=== PATIENT | male | born 1955 ===

== ENCOUNTER → 2024-12-22 | Outpatient (CLI) | payer MEDICARE, OTHER ==
[~2024-12-22] VITALS: Ht 167.6 cm; Wt 62.0 kg
[~2024-12-22] MED LIST: ALBU18HF12 IH; APIX5TAB PO; ATOR40TA28 PO; MIRT-89 PO; PANT-31 PO; TAMS0.4C94 PO
[2024-12-22 10:17] VITALS: BP 111/70; PULSE 74; RESP 19; TEMP 98.1; O2SAT 96
== END | disposition still patient (30) ==
LOC: SRCNTR 10:13
PROVIDERS: ATTEND Internal Medicine Pulmonary Disease
DX: I48.91 Unspecified atrial fibrillation (principal); J44.1 Chronic obstructive pulmonary disease with (acute) exacerbation; Z79.01 Long term (current) use of anticoagulants; Z79.899 Other long term (current) drug therapy; Z82.49 Family history of ischemic heart disease and other diseases of the circulatory system; Z87.891 Personal history of nicotine dependence; Z98.890 Other specified postprocedural states
CPT/HCPCS: G0463; Z7500